=== PATIENT | female | born 1960 | race Caucasian/White ===

== ENCOUNTER → 2023-08-24 07:53 | Outpatient (REF) | payer BC, SELFPAY | LOC: HWRAD 07:53 | PROVIDERS: ATTENDING PHYSICIAN Nurse Practitioner Adult Health | DX: M85.80 Other specified disorders of bone density and structure, unspecified site (principal) | CPT/HCPCS: 77080 ==

== ENCOUNTER → 2024-03-14 09:57 | Outpatient (REF) | payer OTHER, SELFPAY | LOC: HWWDC 09:57 | PROVIDERS: ATTENDING PHYSICIAN Nurse Practitioner Adult Health; REFERRING PHYSICIAN Obstetrics & Gynecology | DX: Z12.31 Encounter for screening mammogram for malignant neoplasm of breast (principal) | CPT/HCPCS: 77063; 77067 ==

== ENCOUNTER 2024-05-21 19:07 | Emergency (ER) | payer OTHER, SELFPAY ==
[2024-05-21] VITALS (8 sets, daily range): BP systolic 91–144; BP diastolic 49–117; BMI 30.3
[2024-05-21 19:27] LABS: % Basophils 0.7 % (0-2); % Eosinophils 1.6 % (0-6); % Immature Granulocytes 0.1 % (0-0.5); % Lymphocytes 43.7 % (20.5-51.1); % Monocytes 6.4 % (1.7-9.3); % Neutrophils 47.5 % (42.2-75.2); Absolute Basophils 0.1 10^3/uL (0-0.2); Absolute Eosinophils 0.2 10^3/uL (0-0.7); Absolute Lymphocytes 4.1 10^3/uL (1.2-3.4); Absolute Monocytes 0.6 10^3/uL (0.1-0.6); Absolute Neutrophils 4.5 10^3/uL (1.4-6.5); Hemoglobin 14.2 g/dL (12.0-16.0); Mean Corp Hgb Conc. 33.8 g/dL (33.0-37.0); Mean Corpuscular Hgb 29.2 pg (27.0-31.0); Mean Corpuscular Volume 86.4 fL (81.0-99.0); Mean Platelet Volume 9.9 fL (7.4-10.4); Nucleated Red Blood Cells % 0 %; Platelet Count 265 10^3/uL (130-400); Red Blood Cell Count 4.86 10^6/uL (4.20-5.40); Red Cell Dist. Width 12.9 % (11.5-14.5); White Blood Cell Count 9.4 10^3/uL (4.8-10.8)
--- NOTE | 2024-05-21 19:36 | ED.GENMED ---
History of Present Illness
General
Chief Complaint: Breathing Problem
Source: patient
Exam Limitations: none
Time Seen by Provider: 05/21/24 19:28
Nursing documentation reviewed up to this point in time: agreed with
History of Present Illness
History of Present Illness:
64-year-old female with history of hypothyroid, chronic back pain last epidural 2 mos ago, HLD presents stating stating she's had persistent shortness of breath with exertion for past month, not at rest. She has also had intermittent sweating
episodes during the day for past month.
Gets an occasional mid chest pain. Gets a 'funny feeling' in throat sometimes when she is eating.
She states she's had pain behind her right knee past week. Denies swelling of the leg.
No recent travel. Denies dizziness, lightheadedness.
Past History
Past History
ED Past Medical History: Hypercholesterolemia, Hypothyroidism and Psychiatric (anxiety/depression)
ED Past Surgical History: Appendectomy
Social History
Tobacco: Non-smoker
Alcohol: Occasional
Personal:
Living: with family
Employment: Retired
Review of Systems
Review of Systems
Allergies reviewed?: Yes
All Other Systems: ROS reviewed and negative except as documented in HPI and ROS
Constitutional: Denies fever or fatigue
Respiratory: Reports other (ROSE); Denies cough or trouble breathing
Cardiac: Denies chest pain
ABD/GI: Denies abdominal pain, nausea, vomiting, diarrhea or constipated
: Denies dysuria, frequency, flank pain or urgency
Musculoskeletal: Reports other (pain behind right knee past week.); Denies edema or neck pain
Skin: Reports no symptoms
Neurological: Reports no symptoms
Phy Exam
Physical Exam
Physical Exam:
GENERAL: No acute distress. A&Ox3.
CONSTITUTIONAL: Afebrile.
EYES: clear, conjunctivae normal
ENMT: moist mucus membranes, Pharynx nl
RESPIRATORY: Regular respirations, nonlabored, lungs clear.
CARDIOVASCULAR: Regular rate and rhythm, no murmurs, no rubs.
GI: Soft, nontender, normal BS
MUSCULOSKELETAL: Moves with ease. Well perfused.
SKIN: Warm, dry, pink
PSYCH: Normal mood and affect. Well kept, interactive and appropriate
NEUROLOGIC: Awake, alert and oriented. No focal neurological deficits
Scores
Heart Failure Risk
Heart Failure Risk Score: Not Applicable
Course
Orders/Labs/Results
Orders:
Orders
05/21/24 19:11
Electrocardiogram (*1) Urgent
Reason for Study: Other
Other Reason for Exam: Respiratory Distress
EKG- Treatment ONCE
05/21/24 19:22
Complete Blood Count/With Diff Urgent
Comprehensive Metabolic Panel Urgent
05/21/24 20:00
D-Dimer Urgent
Troponin I Urgent
05/21/24 21:31
CR Chest - 2 Views Urgent
Comment:
Reason For Exam: SOB
05/21/24 22:46
Pantoprazole [Protonix] 40 mg PO NOW STA
Abnormal Lab Results
05/21/24
19:22
Absolute Lymphs (auto) 4.1 H 10^3/uL
(1.2-3.4)
BUN 20 H mg/dl
(7-17)
05/21/24 19:22
05/21/24 19:22
Vital Signs
Initial and Last Documented VS:
Initial Vital Signs
Temp Pulse Resp BP Pulse Ox
98.3 F 68 19 130/100 95
05/21/24 19:09 05/21/24 19:09 05/21/24 19:09 05/21/24 19:09 05/21/24 19:09
Last Documented Vital Signs
Temp Pulse Resp BP Pulse Ox
98.3 F 61 16 110/56 96
05/21/24 19:09 05/21/24 22:55 05/21/24 22:55 05/21/24 22:56 05/21/24 22:55
MDM/Problems Addressed
Differential Diagnosis Includes:
GERD, PE
MDM/Problems Addressed:
64-year-old female with history of hypothyroid, chronic back pain last epidural 2 mos ago, HLD presents stating stating she's had persistent shortness of breath with exertion for past month, not at rest. She has also had intermittent sweating
episodes during the day for past month.
Gets an occasional mid chest pain. Gets a 'funny feeling' in throat sometimes when she is eating.
She states she's had pain behind her right knee past week. Denies swelling of the leg.
No recent travel. Denies dizziness, lightheadedness.
Afebrile, NAD
EKG NSR
8:00 PM:
CMP normal
CBC normal
Troponin normal
D-dimer normal
10:30 p.m.
CXR reviewed with Dr. Mcguire:
Pt stable for discharge
With the throat sensation, will trial Protonix and she will let her PCP know if it helps.
*Pulse Oximetry
Patient hypoxic: no
*EKG
EKG Intrepretation Date: 05/21/24
Interpretation: normal
Heart Rate: 62
Rate: normal
Rhythm: sinus
[place]: normal axis
Interval: normal interval
QRS Pattern: normal QRS
Ischemia: no ischemia
*Critical Care Note
Total Time (30-74mins, 75-104mins- exclusive of procedures): Not Applicable
ED Attending Note
-
Portions of this chart may have been created with voice recognition software.� Occasional wrong word or��sound alike� substitutions may have occurred due to the inherent limitations of voice recognition software.
Discharge Plan
Departure
Patient Disposition: Home (Routine Discharge)
Date of Disposition: 05/21/24
Time of Disposition: 22:39
Patient with high blood pressure during this ER visit?: No
Condition: Good
Discharge Problem:
Shortness of breath
Instructions: Shortness of Breath (Dyspnea) (DC), Acid reflux and GERD in adults
Prescriptions:
New
pantoprazole [Protonix] 40 mg tablet,delayed release (DR/EC)
40 mg PO DAILY Qty: 30 0RF
Referrals:
Kiya Majano CRNP [Family Provider] - Call in 1-3 days for appt
Activity Restrictions/Additional Instructions:
As we discussed, your workup here shows nothing worrisome. Nothing to explain your feeling short of breath
Try the Pantoprazole and let your doctor know if it works.
Your oxygen level is normal, your chest xray is normal. Your EkG is normal. Your blood work is normal,.
See your doctor next week if your symptoms are not better.
Interventions
Interventions:
*Risk Screen - Suicide Last Done: 05/21/24 19:09
*General Assessment Last Done: 05/21/24 20:18
*Neglect/Abuse Screening Last Done: 05/21/24 19:09
ED- Fall Risk Assessment Last Done: 05/21/24 20:18
*ED COVID-19 Vaccine History Last Done: 05/21/24 20:18
*Nursing Disposition Last Done: 05/21/24 23:00
ED- Cardiac Assessment Last Done: 05/21/24 20:18
ED- Pulmonary Assessment Last Done: 05/21/24 20:18
Discharge Date and Time
Discharge Date/Time: 05/21/24 23:00
Print Language: TAJIK
[2024-05-21 19:40] LABS: ALT (SGPT) 20 U/L (0-35); AST (SGOT) 26 U/L (14-36); Albumin 4.6 g/dl (3.5-5.0); Alkaline Phosphatase 60 U/L (38-126); Blood Urea Nitrogen 20 mg/dl (7-17); Calcium 9.3 mg/dl (8.4-10.2); Carbon Dioxide 27 mmol/L (22-30); Chloride 102 mmol/L (98-107); Glucose 93 mg/dl (70-99); Potassium 4.5 mmol/L (3.5-5.1); Sodium 140 mmol/L (135-145); Total Bilirubin 0.3 mg/dl (0.2-1.3); Total Protein 7.3 g/dl (6.3-8.2); eGFR > 60.00
[2024-05-21 20:21] LABS: D-Dimer 0.37 ug/mlFEU (0.00-0.50)
[2024-05-21 20:34] LABS: Troponin I < 0.012 ng/ml
[2024-05-21] MEDS: PROTONIX 40 MG PO (22:53)
== END 2024-05-21 23:00 | disposition home or self-care (01) ==
LOC: EMR 19:07
PROVIDERS: Emergency Medicine; Registered Nurse; EMERGENCY PHYSICIAN Student in an Organized Health Care Education/Training Program; FAMILY PHYSICIAN Nurse Practitioner Adult Health
DX: R06.02 Shortness of breath (principal); G89.29 Other chronic pain; M54.9 Dorsalgia, unspecified; E78.00 Pure hypercholesterolemia, unspecified; E03.9 Hypothyroidism, unspecified; F41.8 Other specified anxiety disorders
CPT/HCPCS: 99283; 71046; 80053; 84484; 85025; 85379; 93005

== ENCOUNTER → 2024-06-14 14:13 | Outpatient (REF) | payer OTHER, SELFPAY | LOC: DHSLP 14:13 | PROVIDERS: ATTENDING PHYSICIAN Internal Medicine; FAMILY PHYSICIAN Nurse Practitioner Adult Health | DX: G47.30 Sleep apnea, unspecified (principal); R06.83 Snoring | CPT/HCPCS: 95800 ==

== ENCOUNTER → 2024-06-27 10:19 | Outpatient (REF) | payer OTHER, SELFPAY | LOC: HWRAD 10:19 | PROVIDERS: ATTENDING PHYSICIAN Nurse Practitioner Adult Health | DX: M25.561 Pain in right knee (principal) | CPT/HCPCS: 73564 ==

== ENCOUNTER → 2024-07-05 14:35 | Outpatient (REF) | payer OTHER, SELFPAY | LOC: HWRAD 14:35 | PROVIDERS: ATTENDING PHYSICIAN Nurse Practitioner Adult Health | DX: M25.561 Pain in right knee (principal) | CPT/HCPCS: 76882 ==

== ENCOUNTER → 2025-01-21 09:57 | Outpatient (REF) | payer OTHER, SELFPAY | LOC: HWRAD 09:57 | PROVIDERS: ATTENDING PHYSICIAN Nurse Practitioner Adult Health | DX: T67.1XXA Heat syncope, initial encounter (principal) | CPT/HCPCS: 71046 ==

== ENCOUNTER → 2025-02-02 09:00 | Outpatient (REF) | payer OTHER, SELFPAY | LOC: RCS 09:00 | PROVIDERS: ATTENDING PHYSICIAN Nurse Practitioner Adult Health | DX: R00.1 Bradycardia, unspecified (principal) | CPT/HCPCS: 93225; 93226 ==

== ENCOUNTER 2025-02-07 19:12 | Emergency (ER) | payer OTHER, SELFPAY ==
[2025-02-07] VITALS (7 sets, daily range): BP systolic 121–136; BP diastolic 64–106; PULSE 54–59; BMI 31.5
[2025-02-07 19:55] LABS: Hematocrit 44.2 % (37.0-47.0); Hemoglobin 14.9 g/dL (12.0-16.0); Mean Corp Hgb Conc. 33.7 g/dL (33.0-37.0); Mean Corpuscular Volume 85.5 fL (81.0-99.0); Nucleated Red Blood Cells % 0 %; Platelet Count 261 10^3/uL (130-400); Red Cell Dist. Width 12.8 % (11.5-14.5)
[2025-02-07 20:05] LABS: D-Dimer 0.33 ug/mlFEU (0.00-0.50)
[2025-02-07 20:15] LABS: ALT (SGPT) 17 U/L (0-35); AST (SGOT) 18 U/L (14-36); Albumin 4.8 g/dl (3.5-5.0); Alkaline Phosphatase 66 U/L (38-126); Blood Urea Nitrogen 22 mg/dl (7-17); Calcium 9.9 mg/dl (8.4-10.2); Carbon Dioxide 27 mmol/L (22-30); Chloride 102 mmol/L (98-107); Glucose 150 mg/dl (70-99); Potassium 4.9 mmol/L (3.5-5.1); Sodium 136 mmol/L (135-145); Total Protein 7.6 g/dl (6.3-8.2); eGFR > 60.00
[2025-02-07 20:27] LABS: Troponin I < 0.012 ng/ml
--- NOTE | 2025-02-08 00:47 | ED.GENMED ---
History of Present Illness
General
Chief Complaint: Breathing Problem
Source: patient
Exam Limitations: none
Time Seen by Provider: 02/07/25 20:51
Nursing documentation reviewed up to this point in time: agreed with
History of Present Illness
History of Present Illness:
Patient to ED [facility] report of intermittent episodes of lightheadedness, headache. States she had a syncopal episode approx 1 month ago while at an outside event. She has had intermittent symptoms since. Denies fever/chills, n/v/diaphoresis. No
cp/pressure. States she ocassionally feels like she needs to take a deep breath but denies feeling SOB. Last night she checked her pulse ox and states it was reading in the 80's. She denies feeeling SOB at that time. Advised by PCP to come to ED.
Past History
Past History
ED Past Medical History: Hypercholesterolemia, Hypothyroidism and Psychiatric (anxiety/depression)
ED Past Surgical History: Appendectomy
Social History
Tobacco: Non-smoker
Alcohol: Occasional
Personal:
Living: with family
Employment: Retired
Review of Systems
Review of Systems
Allergies reviewed?: Yes
All Other Systems: ROS reviewed and negative except as documented in HPI and ROS
Constitutional: Reports no symptoms
EENT: Reports no symptoms
Respiratory: Reports no symptoms
Cardiac: Reports syncope (1 mos ago)
ABD/GI: Reports no symptoms
: Reports no symptoms
Musculoskeletal: Reports no symptoms
Skin: Reports no symptoms
Neurological: Reports dizzy and weakness
Psychiatric: Reports no symptoms
Phy Exam
General Physical Exam
General Presentation: well appearing and no apparent distress
General age: appears stated age
General Skin: warm and dry
General Habitus: normal
General Mental: alert
Cardiovascular Exam
Cardiovascular Exam: regular rate/rhythm and no edema
Pulmonary Exam
Pulmonary Exam: lungs clear and no respiratory distress
Gastrointestinal Exam
Gastrointestinal Exam: non tender and soft
Neurological Exam
Neurological Exam: alert, oriented x3, CN II-XII intact, no motor deficits, no sensory deficits, speech normal and normal gait
Musculoskeletal Exam
Musculoskeletal Exam: full ROM and neuro vasc intact
Skin Exam
Skin Exam: normal color, warm/dry and no rash
Psychiatric Exam
Psychiatric Exam: normal mood/affect
Scores
Heart Failure Risk
Heart Failure Risk Score: Not Applicable
Course
Orders/Labs/Results
Orders:
Orders
02/07/25 19:13
Electrocardiogram (*1) Urgent
Reason for Study: Shortness of Breath
EKG- Treatment ONCE
02/07/25 19:15
Chest [CR Chest - 2 Views ] Urgent
Comment:
Reason For Exam: SOB
02/07/25 19:30
Complete Blood Count/With Diff Urgent
Comprehensive Metabolic Panel Urgent
D-Dimer Urgent
Troponin I Urgent
02/07/25 22:01
CT Head W/o Iv Contrast Urgent
Comment:
Reason For Exam: dizziness
Abnormal Lab Results
02/07/25
19:30
WBC 11.0 H 10^3/uL
(4.8-10.8)
Abs Immat Gran (auto) 0.1 H 10^3/uL
(0-0.05)
Absolute Neuts (auto) 7.8 H 10^3/uL
(1.4-6.5)
BUN 22 H mg/dl
(7-17)
Glucose 150 H mg/dl
(70-99)
02/07/25 19:30
02/07/25 19:30
Vital Signs
Initial and Last Documented VS:
Initial Vital Signs
Temp Pulse Resp BP Pulse Ox
98.3 F 58 20 136/71 96
02/07/25 19:20 02/07/25 19:20 02/07/25 19:20 02/07/25 19:20 02/07/25 19:20
Last Documented Vital Signs
Temp Pulse Resp BP Pulse Ox
98.3 F 51 16 127/106 94
02/07/25 19:20 02/07/25 22:10 02/07/25 22:10 02/07/25 22:10 02/07/25 22:10
*Radiology
Radiology exam reviewed: radiology read reviewed
*Pulse Oximetry
SaO2: 94
Oxygen Mode of Delivery: Room air
Patient hypoxic: no
*Critical Care Note
Total Time (30-74mins, 75-104mins- exclusive of procedures): Not Applicable
Update Note
Update Note:
Patient to ED for intermittent episodes of light headedness, headache. Labs reviewed WNL/stable. Head CT neg for acute findings, eKg NSR. DDimer neg - no history of DVT's, no leg pain or swelling. CXR NAD. Troponin neg. No concerning findings on
exam tonight WIll discharge home, she will followup with PCP given instructions on s/s to return to ED and she is agreeable to plan.
ED Attending Note
-
Portions of this chart may have been created with voice recognition software.� Occasional wrong word or��sound alike� substitutions may have occurred due to the inherent limitations of voice recognition software.
Discharge Plan
Departure
Patient Disposition: Home (Routine Discharge)
Date of Disposition: 02/07/25
Time of Disposition: 23:27
Patient with high blood pressure during this ER visit?: No
Condition: Good
Covid-19: Not Applicable
Discharge Problem:
Dizziness, Headache
Instructions: Headaches in adults, Dizziness in adults - ED discharge instructions
Prescriptions:
No Action
pantoprazole [Protonix] 40 mg tablet,delayed release (DR/EC)
40 mg PO DAILY Qty: 30 0RF
Referrals:
Sands,Kiya A., [employer] [Family Provider, General] - Follow up in 2-3 days
Interventions
Interventions:
*Risk Screen - Suicide Last Done: 02/07/25 19:20
*General Assessment Last Done: 02/07/25 19:20
*Neglect/Abuse Screening Last Done: 02/07/25 19:20
*ED- Fall Risk Assessment Last Done: 02/07/25 19:20
*ED COVID-19 Vaccine History Last Done: 02/07/25 19:20
*Nursing Disposition Last Done: 02/08/25 00:13
ED- Cardiac Assessment Last Done: 02/07/25 21:02
ED- Pulmonary Assessment Last Done: 02/07/25 21:02
Discharge Date and Time
Discharge Date/Time: 02/08/25 00:13
Print Language: EQUATORIAL GUINEAN
== END 2025-02-08 00:13 | disposition home or self-care (01) ==
LOC: EMR 19:12
PROVIDERS: Emergency Medicine; EMERGENCY PHYSICIAN Emergency Medicine; FAMILY PHYSICIAN Nurse Practitioner Adult Health
DX: R51.9 Headache, unspecified (principal); R42 Dizziness and giddiness; E78.00 Pure hypercholesterolemia, unspecified; E03.9 Hypothyroidism, unspecified; Z90.49 Acquired absence of other specified parts of digestive tract
CPT/HCPCS: 99284; 70450; 71046; 80053; 84484; 85025; 85379; 93005

== ENCOUNTER → 2025-03-20 10:02 | Outpatient (REF) | payer OTHER, SELFPAY | LOC: HWWDC 10:02 | PROVIDERS: ATTENDING PHYSICIAN Nurse Practitioner Adult Health; REFERRING PHYSICIAN Obstetrics & Gynecology | DX: Z12.31 Encounter for screening mammogram for malignant neoplasm of breast (principal) | CPT/HCPCS: 77063; 77067 ==

== ENCOUNTER 2025-04-11 06:19 | Day surgery (SDC) | payer OTHER, SELFPAY | END 2025-04-11 10:30 | disposition home or self-care (01) | LOC: GI 06:19 | PROVIDERS: ATTENDING PHYSICIAN Specialist; FAMILY PHYSICIAN Nurse Practitioner Adult Health | DX: Z12.11 Encounter for screening for malignant neoplasm of colon (principal); D12.3 Benign neoplasm of transverse colon; K57.30 Diverticulosis of large intestine without perforation or abscess without bleeding; Z86.0101 Personal history of adenomatous and serrated colon polyps | CPT/HCPCS: 45380; 88305 ==